=== PATIENT | female | born 1985 | race Caucasian/White ===

== ENCOUNTER 2017-03-06 14:10 | Inpatient (IN) | payer OTHER ==
[2017-03-06] MEDS ORDERED: BUTORPHANOL TARTRATE 1 MG/ML VIAL IVPB ONE (15:11)
[2017-03-06] MEDS ORDERED: PROMETHAZINE HCL 25 MG/1 ML VIAL IVPUSH ONE (15:11)
[2017-03-06] MEDS ORDERED: DINOPROSTONE 10 MG VAGINAL SUPPOSITORY VG ONE (15:20)
--- NOTE | 2017-03-06 15:39 | HP ---
Past Medical History - Primary Care Physician PCP:: Gretel Gonzales - Admission Chief Complaint: 32 yrs , 40.5 weeks by sono , 42 weeks by dates sent from the [facility] dept for Oligo , TOMMY 6.2 cm . hence pt is admitted for induction of labor History of Present Illness: PNC at [address] [place] [address] . Wt gain 32 lbs work UP : O pos, Rpr nr, Hiv neg, Hbsag neg, Rubella immune , Sickle neg, Gbs neg, Sickle neg, Quantiferon neg, 1 Hr Gtt 106, gc/ct neg Nt Screen not done, Modified Sequential neg. Grwoth sono reviewed. History Source: Patient, Medical Record Limitations to Obtaining History: No Limitations - Past Medical History BALER: No: Migraine, Seizure Cardiovascular: No: HTN Pulmonary: No: Asthma, COPD Gastrointestinal: No: Gastritis, GERD Hepatobiliary: No: Hepatitis B Renal/: No: UTI ...: 3 ...Para: 2 (2 03/22/2006--7'2", 06/13/2007 7'6" ) ...LMP: 05/16/16 ... Weeks Gestation by Dates: 42 ...EDC by Dates: 02/20/17 ...EDC by Sono: 03/01/17 (40.5) Heme/Onc: Yes: Anemia Infectious Disease: No: HIV, STD's Psych: No: Addictions, Anxiety, Bipolar, Panic Endocrine: No: Diabetes Mellitus, Hyperparathyroidism, Hyperthyroidism, Hypothyroidism - Past Surgical History Past Surgical History: Yes: None Hx Myomectomy: No Hx Transabdominal Cerclage: No - Smoking History Have you smoked in the past 12 months: No - Alcohol/Substance Use Hx Alcohol Use: No History of Substance Use: reports: None Home Medications - Allergies Allergies/Adverse Reactions: Allergies Allergy/AdvReac Type Severity Reaction Status Date / Time No Known Allergies Allergy Verified 03/06/17 16:16 - Home Medications Home Medications: Ambulatory Orders Ferrous Sulfate 325 mg PO DAILY 03/06/17 Pnv95/Ferrous Fumarate/FA [ Vitamin Tablet] 1 each PO DAILY 03/06/17 Physical Exam - Maternity Vital Signs: Selected Entries 03/06/17 14:10 Temperature 98.0 F Pulse Rate 76 Blood Pressure 122/77 Weight 126 lb Constitutional: Yes: Well Nourished Eyes: Yes: WNL, PERRL HENT: Yes: WNL, Normocephalic Neck: Yes: WNL Cardiovascular: Yes: WNL, Regular Rate and Rhythm Lungs: Clear to auscultation Breast(s): Yes: WNL - Abdominal Exam/OB Fundal Height: 36 Number of Fetuses: Single Presentation: Vertex Contractions: No Monitor Mode: External Heart Rate (range): 130-140 Heart Rate Location: [facility] Category: I Accelerations: Uniform Decelerations: None - Vaginal Exam/OB Vaginal Bleediing: No Dilatation (cm): fT Effacement (%): 50 Amniotic Membrane Status: Intact Presentation: Vertex/Position (EXAM AT 3.20 pm) Station: -3 - Physical Exam Musculoskeletal: Yes: WNL Extremities: Yes: WNL. No: Calf Tenderness Edema: Yes Edema: LLE: 1+, RLE: 1+ Integumentary: Yes: WNL Deep Tendon Reflex Grade: Normal +2 ...Motor Strength: WNL Psychiatric: Yes: WNL, Alert, Oriented - Labs Lab Results: Laboratory Tests 03/06/17 03/06/17 03/06/17 16:00 16:00 16:00 WBC 5.3 Hgb 12.1 Hct 36.1 Plt Count 209 Neutrophils % 64.5 Lymphocytes % 26.4 Monocytes % 7.8 Eosinophils % 1.1 Basophils % 0.2 INR 0.88 PTT (Actin FS) 31.5 Sodium 138 Potassium 4.1 Chloride 105 Carbon Dioxide 22 BUN 9 Creatinine 0.4 L Random Glucose 98 Problem List - Problems (1) Post term , 41 weeks Code(s): O48.0 - POST-TERM Z3A.41 - 41 WEEKS GESTATION OF (2) Oligohydramnios Code(s): O41.00X0 - OLIGOHYDRAMNIOS, UNSP TRIMESTER, NOT APPLICABLE OR UNSP Qualifiers: Trimester: third trimester (3) Elective induction of labor planned Code(s): [id number] - Assessment/Plan 32 yrs , 40 .5 weeks by sono & 42 weeks by dates , noted to have oligohydramnios on BPP( TOMMY -.6.2 cm ), GBS neg Plan cervidil inductio Trial of labor for vag delivery
[2017-03-06 15:59] VITALS: BMI 24.6
[2017-03-06] MEDS ORDERED: SODIUM PHOSPHATE/NA BIPHOS 133 ML ENEMA PR ONE (16:42)
[2017-03-06 16:49] LABS: BASOPHIL 0.2 % (0-2.0); EOSINOPHIL 1.1 % (0-4.5); MCH 26.7 pg (25.7-33.7); MCHC 33.5 g/dl (32.0-36.0); MEAN CELL VOLUME 79.7 fl (80-96); MEAN PLT VOLUME 8.9 fl (7.5-11.1); NEUTROPHILS 64.5 % (42.8-82.8); PLATELET COUNT 209 K/MM3 (134-434); RDW 19.6 % (11.6-15.6); WHITE BLOOD COUNT 5.3 K/mm3 (4.0-10.0)
[2017-03-06 16:59] LABS: INR 0.88 (0.82-1.09); PROTHROMBIN TIME (PATIENT) 9.7 SEC (9.98-11.88)
[2017-03-06] MEDS: DEXTROSE 5%-LACTATED RINGERS 1,000 ML IV SCH (17:00)
[2017-03-06 17:02] LABS: ACTIVATED PTT 31.5 SECONDS (26.9-34.4)
[2017-03-06 17:19] LABS: ANION GAP 11 (8-16); CALCIUM 8.6 mg/dL (8.5-10.1); CO2 22 mmol/L (21-32); CREATININE 0.4 mg/dL (0.55-1.02); GLUCOSE,RANDOM 98 mg/dL (74-106)
--- NOTE | 2017-03-06 18:48 | PN ---
Progress Note, Labor Vaginal Exam #1 Labor Exam Date: 03/06/17 Labor Exam Time: 18:35 Heart Rate (range): 110-120 Dilatation: 1cm Effacement (%): 60 Amniotic Membrane Status: Intact Presentation: Vertex/Position Station: -3 Remarks: fhr ca1 UC q1 -min pt c/o pain IV hydration was given rx Iv stadol 2 mg + phenergan 25 mg iv stat Vaginal Exam #2 Labor Exam Date: 03/07/17 Labor Exam Time: 01:55 Heart Rate (range): 120-130 Dilatation: 2 Effacement (%): 60 Amniotic Membrane Status: Ruptured Presentation: Vertex/Position Station: -3 Remarks: uc 1-2 min FHR cat-1 BP131/80, T982 Pulse 71 Vaginal Exam #3 Labor Exam Date: 03/07/17 Labor Exam Time: 08:00 Heart Rate (range): 135 Dilatation: 3 Effacement (%): 60 Amniotic Membrane Status: Intact Presentation: Vertex/Position Station: -3 Remarks: UC q1-2 min FHR cat-1 Plan pt may ambulate & shower Selected Entries 03/07/17 06:00 Temperature 97.6 F Pulse Rate 89 Blood Pressure 129/86 03/07/17 12.15 Pm no change in cervix dilatation ,post, thick 2-3 cm FHR cat-1 uc dysfunctional 2-4 min . Pitocin augmentation start with 0.5 ml/hr . 03/07/17 17.45 FHR 135 , cat-1 UC q2-4 min cx , no change , post, thick 2-3 cm , vx -[address] trial of labor may do fractional induction Selected Entries 03/07/17 03/07/17 16:00 17:00 Temperature 98.1 F Pulse Rate 64 70 Blood Pressure 129/78 127/79 03/07/17 23.45 FHR 130 cat-1 UC q3 -4 min cx 3 cm.thick, 60%/mI vx -3 , post os . pt disheartened & anxious & crying BP sometimes is elevated 150/88 bilateral edema of feet upto midcalf is noted Plan stop pitocin rest until 5.00AM restart pitocin at 6.00AM after enema & shower UA HELLP, repeat cbc Laboratory Tests 03/08/17 03/08/17 03/08/17 00:10 00:10 00:10 Retic Count 1.99 H GGT 33 AST 30 ALT 21 Urine Protein 1+ H
[2017-03-06] MEDS ORDERED: DEXTROSE 5%-LACTATED RINGERS 1,000 ML IV ONE (23:00)
[2017-03-07] MEDS ORDERED: BUTORPHANOL TARTRATE 1 MG/ML VIAL IVPUSH ONE (02:11)
[2017-03-07] MEDS ORDERED: PROMETHAZINE HCL 25 MG/1 ML VIAL IVPUSH ONE (02:11)
[2017-03-07] MEDS: DEXTROSE 5%-LACTATED RINGERS 1,000 ML IV SCH ×3 (04:23→23:30)
[2017-03-07] MEDS: OXYTOCIN 15 UNITS/ LR 250 ML 250 ML IVPB SCH (12:15)
[2017-03-08 00:34] LABS: BASOPHIL 0.6 % (0-2.0); EOSINOPHIL 0.9 % (0-4.5); MCH 25.8 pg (25.7-33.7); MCHC 32.4 g/dl (32.0-36.0); MEAN CELL VOLUME 79.6 fl (80-96); MEAN PLT VOLUME 9.1 fl (7.5-11.1); NEUTROPHILS 65.8 % (42.8-82.8); PLATELET COUNT 208 K/MM3 (134-434); WHITE BLOOD COUNT 6.3 K/mm3 (4.0-10.0)
[2017-03-08 00:54] LABS: URIC ACID 4.4 mg/dL (2.6-7.2)
[2017-03-08 02:39] LABS: URINE APPEARANCE CLEAR; URINE BILIRUBIN NEGATIVE (NEGATIVE); URINE BLOOD NEGATIVE (NEGATIVE); URINE COLOR LTYELLOW; URINE GLUCOSE (UA) NEGATIVE (NEGATIVE); URINE KETONE NEGATIVE (NEGATIVE); URINE LEUK ESTERASE NEGATIVE (NEGATIVE); URINE NITRITE NEGATIVE (NEGATIVE); URINE UROBILINOGEN 2.0 E.U/dl E.U./dl (0.2-1.0)
[2017-03-08 02:40] LABS: URINE PROTEIN 1+ (NEGATIVE)
[2017-03-08 02:44] LABS: URINE MUCUS RARE; URINE WBC 1 /hpf (3-5)
[2017-03-08] MEDS: DEXTROSE 5%-LACTATED RINGERS 1,000 ML IV SCH ×2 (09:02→15:26)
--- NOTE | 2017-03-08 09:48 | PN ---
Progress Note, Labor Vaginal Exam #1 Labor Exam Date: 03/08/17 Labor Exam Time: 09:25 Heart Rate (range): 120-130 Dilatation: 3 Effacement (%): thick/60 Amniotic Membrane Status: Ruptured (AROM clear blood stained fluid scanty) Presentation: Vertex/Position Station: -3 Remarks: uc irregular 2-5 min fhr cat-1 pt was permitted rest last night In AM today she was given fleets enema , shower 8.30 Am pitocin induction started Selected Entries 03/08/17 03/08/17 03/08/17 04:00 08:00 09:00 Temperature 98.3 F Pulse Rate 62 62 Blood Pressure 131/80 146/87 146/80 Vaginal Exam #2 Labor Exam Date: 03/08/17 Labor Exam Time: 13:45 Heart Rate (range): 135 Dilatation: 5 Effacement (%): 65 Amniotic Membrane Status: Ruptured Presentation: Vertex/Position Station: -2 (-3/-2) Remarks: FHR cat-1 UC q 2-3 min . 12.30pm iv stadol 1 mg + phenrgan 25 mg given 2..15pm epidural requested . 2.50pm epidural given Selected Entries 03/08/17 03/08/17 03/08/17 12:00 13:00 14:00 Temperature 98.6 F 98.2 F Pulse Rate 62 104 H 94 H Blood Pressure 146/76 154/88 144/92 Vaginal Exam #3 Labor Exam Date: 03/08/17 Labor Exam Time: 16:10 Heart Rate (range): 120-130 Dilatation: 8 Effacement (%): 90 Amniotic Membrane Status: Ruptured Presentation: Vertex/Position Station: 0 Remarks: fhr cat-2 uc 2-3 min Selected Entries 03/08/17 15:35 Pulse Rate 73 Blood Pressure 148/85 Vaginal Exam #4 Labor Exam Date: 03/08/17 Labor Exam Time: 18:00 Heart Rate (range): 125 Dilatation: 10 Effacement (%): 100 Amniotic Membrane Status: Ruptured Presentation: Vertex/Position Station: +2 Remarks: fhr cat-1 UC q 2min pt encouraged to push Selected Entries 03/08/17 03/08/17 03/08/17 17:50 18:00 18:05 Temperature 99.0 F Pulse Rate 85 92 H Blood Pressure 151/87 146/81
[2017-03-08] MEDS: OXYTOCIN 15 UNITS/ LR 250 ML 250 ML IVPB SCH (13:20)
[2017-03-08] MEDS ORDERED: ELECTROLYTE-148 SOLN 1,000 ML IV SCH (14:15)
[2017-03-08] MEDS ORDERED: FENTANYL/BUPIVACAINE/NS/PF - PCEA - 50 ML DISP.SYRIN EP SCH (15:00)
[2017-03-08] MEDS: ACETAMINOPHEN 325 MG TABLET (FP) PO PRN (19:20)
--- NOTE | 2017-03-08 19:24 | PN ---
Delivery - Delivery Vaginal Delivery: No Problems, Spontaneous Type of Anesthesia: Local, Epidural Episiotomy/Laceration: Midline (episiotomy sutured in layers with chr catgut #2/ 0 pr exam mucosa & sphincter intact) EBL (cc): 300 Delivery, Single - Stages of Labor Date 1st Stage Initiatied: 03/08/17 Time 1st Stage Initiated: 12:00 Date 2nd Stage Initiated: 03/08/17 Time 2nd Stage Initiated: 18:00 Date of Delivery: 03/08/17 Time of Delivery: 18:25 Time Placenta Delivered: 18:30 Placenta: Yes: Spontaneous, Uterine Exploration - Condition of Infant Outpatient Physical Therapist Assistant/Precision Devices Inspector/Tester Present: No Infant Gender: Male Position: Left, OA Total Hours ROM (Hrs/Mins): 9 hours 5 minutes - 1 Minute Total Score: 9 5 Minutes Total Score: 9 - Feeding Plan Initial Plan: Elected not to breastfeed exclusively throughout hospitalization Remarks - Remarks Remarks: 32 yrs , admitted on 03/06/17 for induction of labor due to 40 .5 weeks Oligohydramnios . [facility] 03[facility]17 cervidil insertion , d/vinod in 6 hrs due to tachysystole . rx stadol + phenrgan for analgesia was given 03/06/17 Pitocin Induction started for 12 hrs , no change in cx , d/vinod 03/07/17 Pitocin Induction restarted stadol + phenrgan followed by epidural labor analgesia was given . Prolonged latent phase of labor . Intrapartum course uneventful
[2017-03-08] MEDS ORDERED: oxyCODONE HCL 5 MG TABLET PO PRN (19:30)
[2017-03-08] MEDS ORDERED: METHYLERGONOVINE MALEATE 0.2 MG/1 ML AMP IM PRN (19:30)
[2017-03-08] MEDS ORDERED: D5W-LR W/ 20 UNITS OXYTOCIN 1,000 ML IV SCH (19:30)
[2017-03-08] MEDS ORDERED: BENZOCAINE 20% 57 GM BOTTLE TP PRN (19:30)
[2017-03-08] MEDS ORDERED: WITCH HAZEL 50% (TUCKS) 40 PAD/JAR PAD TP PRN (19:30)
[2017-03-08] MEDS ORDERED: BENZOCAINE 28 GM HEMORRHOIDAL OINTMENT TP PRN (19:30)
[2017-03-08] MEDS ORDERED: BISACODYL 10 MG SUPP.RECT RC PRN (19:30)
[2017-03-09] MEDS: ACETAMINOPHEN 325 MG TABLET (FP) PO PRN ×3 (06:30→23:37)
[2017-03-09] MEDS: FERROUS SO4 325 MG TABLET (FP) PO SCH ×2 (08:33→17:05)
--- NOTE | 2017-03-09 09:23 | PN ---
Post Progress Note - Subjective Subjective: c/o exhastion Post Day: 1 Type of Delivery: Vital Signs: Vital Signs Temperature 97.8 F 03/09/17 06:31 Pulse Rate 64 03/09/17 06:31 Respiratory Rate 20 03/09/17 06:31 Blood Pressure 127/77 03/09/17 06:31 O2 Sat by Pulse Oximetry (%) 100 03/08/17 20:00 Breast Exam: Yes: Soft, Other (BF ). No: Engorged Uterus: Yes: Fundus Firm, Fundus below umbilicus, Non-tender Lochia: Yes: Rubra Lochia, amount: Moderate Extremities: Yes: Calves non-tender Perineum: Yes: Intact Activity: Ambulating - Labs Labs: CBC WBC 6.3 K/mm3 (4.0-10.0) 03/08/17 00:10 RBC 4.51 M/mm3 (3.60-5.2) 03/08/17 00:10 Hgb 11.6 GM/dL (10.7-15.3) 03/08/17 00:10 Hct 35.9 % (32.4-45.2) 03/08/17 00:10 MCV 79.6 fl (80-96) L 03/08/17 00:10 MCH 25.8 pg (25.7-33.7) 03/08/17 00:10 MCHC 32.4 g/dl (32.0-36.0) 03/08/17 00:10 RDW 20.0 % (11.6-15.6) H 03/08/17 00:10 Plt Count 208 K/MM3 (134-434) 03/08/17 00:10 MPV 9.1 fl (7.5-11.1) 03/08/17 00:10 Neutrophils % 65.8 % (42.8-82.8) 03/08/17 00:10 Lymphocytes % 25.4 % (8-40) 03/08/17 00:10 Monocytes % 7.3 % (3.8-10.2) 03/08/17 00:10 Eosinophils % 0.9 % (0-4.5) 03/08/17 00:10 Basophils % 0.6 % (0-2.0) 03/08/17 00:10 Retic Count 1.99 % (0.5-1.5) H 03/08/17 00:10 Haptoglobin 115 mg/dL (34-200) 03/08/17 00:10 Problem List - Problems (1) Post term , 41 weeks Code(s): O48.0 - POST-TERM Z3A.41 - 41 WEEKS GESTATION OF (2) Oligohydramnios Code(s): O41.00X0 - OLIGOHYDRAMNIOS, UNSP TRIMESTER, NOT APPLICABLE OR UNSP Qualifiers: Trimester: third trimester (3) Elective induction of labor planned Code(s): [id number] - Assessment/Plan stable pp cbc pending
[2017-03-09] MEDS: PRENATAL VITAMINS W/ FOLIC ACID TABLET (FP) PO SCH (09:47)
[2017-03-09 09:48] LABS: BASOPHIL 0.2 % (0-2.0); EOSINOPHIL 0.2 % (0-4.5); MCH 26.6 pg (25.7-33.7); MCHC 33.1 g/dl (32.0-36.0); MEAN CELL VOLUME 80.3 fl (80-96); MEAN PLT VOLUME 9.4 fl (7.5-11.1); NEUTROPHILS 73.8 % (42.8-82.8); PLATELET COUNT 163 K/MM3 (134-434); RDW 19.8 % (11.6-15.6); WHITE BLOOD COUNT 13.3 K/mm3 (4.0-10.0)
[2017-03-09] MEDS ORDERED: SENNOSIDES/DOCUSATE COMBO (SENNA PLUS) TABLET (UD) PO PRN (22:00)
[2017-03-10] MEDS: FERROUS SO4 325 MG TABLET (FP) PO SCH (08:40)
--- NOTE | 2017-03-10 09:05 | PN ---
Post Progress Note - Subjective Subjective: nocomplains of headache Post Day: 2 Type of Delivery: Vital Signs: Vital Signs Temperature 98.0 F 03/09/17 23:34 Pulse Rate 62 03/10/17 05:39 Respiratory Rate 20 03/10/17 05:39 Blood Pressure 140/96 03/10/17 05:39 O2 Sat by Pulse Oximetry (%) 100 03/08/17 20:00 Breast Exam: Yes: Soft, Other. No: Engorged Uterus: Yes: Fundus Firm, Fundus below umbilicus, Non-tender Lochia: Yes: Rubra Lochia, amount: Moderate Extremities: Yes: Calves non-tender Perineum: Yes: Intact Activity: Ambulating - Labs Labs: CBC WBC 13.3 K/mm3 (4.0-10.0) H D 03/09/17 06:15 RBC 4.15 M/mm3 (3.60-5.2) 03/09/17 06:15 Hgb 11.0 GM/dL (10.7-15.3) 03/09/17 06:15 Hct 33.3 % (32.4-45.2) 03/09/17 06:15 MCV 80.3 fl (80-96) 03/09/17 06:15 MCH 26.6 pg (25.7-33.7) 03/09/17 06:15 MCHC 33.1 g/dl (32.0-36.0) 03/09/17 06:15 RDW 19.8 % (11.6-15.6) H 03/09/17 06:15 Plt Count 163 K/MM3 (134-434) D 03/09/17 06:15 MPV 9.4 fl (7.5-11.1) 03/09/17 06:15 Neutrophils % 73.8 % (42.8-82.8) 03/09/17 06:15 Lymphocytes % 18.3 % (8-40) D 03/09/17 06:15 Monocytes % 7.5 % (3.8-10.2) 03/09/17 06:15 Eosinophils % 0.2 % (0-4.5) 03/09/17 06:15 Basophils % 0.2 % (0-2.0) 03/09/17 06:15 Retic Count 1.99 % (0.5-1.5) H 03/08/17 00:10 Haptoglobin 115 mg/dL (34-200) 03/08/17 00:10 Problem List - Problems (1) Post term , 41 weeks Code(s): O48.0 - POST-TERM Z3A.41 - 41 WEEKS GESTATION OF (2) Oligohydramnios Code(s): O41.00X0 - OLIGOHYDRAMNIOS, UNSP TRIMESTER, NOT APPLICABLE OR UNSP Qualifiers: Trimester: third trimester (3) Elective induction of labor planned Code(s): [id number] - Assessment/Plan stable plan ct ppcare discharge today
[2017-03-10 09:06] VITALS: BP 123/80; PULSE 67; TEMP 98.3
--- NOTE | 2017-03-10 09:08 | DS ---
Physical Exam-ADMINISTRATIVE OFFICE ASSISTANT Vital Signs: Vital Signs Temperature 98.0 F 03/09/17 23:34 Pulse Rate 62 03/10/17 05:39 Respiratory Rate 20 03/10/17 05:39 Blood Pressure 140/96 03/10/17 05:39 O2 Sat by Pulse Oximetry (%) 100 03/08/17 20:00 Constitutional: Yes: Well Nourished Eyes: Yes: WNL HENT: Yes: WNL Neck: Yes: WNL Cardiovascular: Yes: WNL Respiratory: Yes: WNL Gastrointestinal: Yes: WNL ....Post : Yes: Uterus firm, Uterus non-tender, Moderate lochia rubra ( perineum intact , epi wound healing) Breast(s): Yes: WNL (bf, not engorged) Integumentary: Yes: WNL Neurological: Yes: WNL ...Motor Strength: WNL Psychiatric: Yes: WNL Labs: CBC, BMP 03/09/17 06:15 03/06/17 16:00 Delivery - Delivery Vaginal Delivery: No Problems, Spontaneous Type of Anesthesia: Epidural Episiotomy/Laceration: Midline (episiotomy sutured in layers with chr catgut #2/ 0 pr exam mucosa & sphincter intact) EBL (cc): 300 Delivery, Single - Stages of Labor Date 1st Stage Initiatied: 03/08/17 Time 1st Stage Initiated: 12:00 Date 2nd Stage Initiated: 03/08/17 Time 2nd Stage Initiated: 18:00 Date of Delivery: 03/08/17 Time of Delivery: 18:25 Time Placenta Delivered: 18:30 Placenta: Yes: Spontaneous, Uterine Exploration - Condition of Dashboard Developer/Shooter Helper Present: No Gender: Male Weight: 7 lb 11 oz Position: Left, OA Total Hours ROM (Hrs/Mins): 9 hours 5 minutes - 1 Minute Total Score: 9 5 Minutes Total Score: 9 - [place] Feeding Plan Initial Plan: Elected not to breastfeed exclusively throughout hospitalization Remarks - Remarks Remarks: 32 yrs , admitted on 03/06/17 for induction of labor due to 40 .5 weeks Oligohydramnios . GBS neg PNC at , [facility] 03/06/17 cervidil insertion , d/vinod in 6 hrs due to tachysystole . rx stadol + phenrgan for analgesia was given 03/06/17 Pitocin Induction started for 12 hrs , no change in cx , d/vinod 03/07/17 Pitocin Induction restarted stadol + phenrgan followed by epidural labor analgesia was given . Prolonged latent phase of labor . Intrapartum course uneventful pp course unevntful discharge today. Discharge Summary Reason For Visit: INDUCTION OF LABOR Current Active Problems Elective induction of labor planned (Acute) Normal spontaneous vaginal delivery (Acute) Oligohydramnios (Acute) Post term , 41 weeks (Acute) Prolonged latent phase of labor (Acute) Condition: Stable - Instructions Diet, Activity, Other Instructions: Post Instructions DIET: Continue good diet high in protein, calcium, and iron rich foods. Drink at least eight (8) glasses of water daily in addition to other fluids. ct Regular diet MEDICATIONS: Continue vitamins and iron as previously directed. Motrin and Tylenol may be taken for minor discomfort. ACTIVITY: Mild to moderate exercise may be started in two (2) weeks. Take frequent rest periods. Resume normal activity after six (6) week check up. WOUND CARE OF OPERATIVE SITE: Continue use of perineal bottle until vaginal discharge stops. Keep area clean. Shower daily. Keep abdominal wound dry. Report any drainage or redness to physician. Tub baths, tampons and douches are not permitted for [address] Breast feeding & or Bottle feeding BREAST CARE: (For those that are not breast feeding): If engorgement occurs: Wear tight fitting bra. Take Tylenol or Motrin for pain. Apply cold packs (ice in bags to each breast ) FAMILY PLANNING: There are many control alternatives to pursue and they should be discussed at your first office visit. You may resume sexual activity after your six (6) week check up. (Remember, breast feeding is not a contraceptive) NEXT PHYSICIAN APPOINTMENT: Be certain to call for a six (6) week appointment, unless otherwise directed. Call Clinic or got to Emergency Dept if you have any of the following: Heavy vaginal bleeding Painful urination Leg pain Unusual odor noted to vaginal bleeding High fever Red streaking noted on breast Referrals: Gretel Gonzales MD [Staff Physician] - Disposition: HOME - Home Medications Comprehensive Discharge Medication List: Ambulatory Orders Ferrous Sulfate 325 mg PO DAILY 03/06/17 Pnv95/Ferrous Fumarate/FA [ Vitamin Tablet] 1 each PO DAILY 03/06/17 Benzocaine [Americaine 20% [place] -] 1 spray TP PRN PRN #0 bottle 03/09/17 Ferrous Sulfate [Feosol] 325 mg PO BIDWM tab 03/09/17 Vitamins (Sjr) - 1 tab PO DAILY tablet 03/09/17 Witch Nancy 50% (Tucks) [Tucks Pads -] 1 pad TP PRN PRN #0 pad 03/09/17
[2017-03-10] MEDS: PRENATAL VITAMINS W/ FOLIC ACID TABLET (FP) PO SCH (10:23)
[2017-03-10] MEDS ORDERED: DIPHTH,PERTUSS(ACELL),TET 0.5 ML DISP.SYRIN IM ONE (11:00)
== END 2017-03-10 12:50 | disposition home or self-care (01) | DRG 560 ==
LOC: JLDR 14:10 → J3W 03-07 08:51 → JLDR 03-07 12:06 → J3W 03-08 21:09
PROVIDERS: ADMIT Obstetrics & Gynecology; ATTEND Obstetrics & Gynecology
PROC: 3E0P7GC Introduction of Other Therapeutic Substance into Female Reproductive, Via Natural or Artificial Opening (ICD-10-PCS; 2017-03-06)
PROC: 10E0XZZ Delivery of Products of Conception, External Approach (ICD-10-PCS; principal; 2017-03-08)
PROC: 0W8NXZZ Division of Female Perineum, External Approach (ICD-10-PCS; 2017-03-08)
DX: O41.03X0 Oligohydramnios, third trimester, not applicable or unspecified (principal); O48.0 Post-term pregnancy; O63.9 Long labor, unspecified; Z3A.41 41 weeks gestation of pregnancy; Z37.0 Single live birth
CPT/HCPCS: 36415; 59409; 80048; 81003; 81015; 82977; 83010; 84450; 84460; 84550; 85025; 85044; 85610; 85730; 86593; 86850; 86900; 86901; 90715

== ENCOUNTER 2022-06-14 04:22 | Day surgery (SDC) | payer OTHER ==
[2022-06-12 11:45] VITALS: BMI 19.5
[2022-06-14] MEDS ORDERED: BUPIVACAINE HCL/PF 0.25% (2.5MG/ML) 10 ML VIAL ONE (07:30)
[2022-06-14] MEDS ORDERED: SUCCINYLCHOLINE CHLORIDE 200 MG/10 ML SYRINGE ONE (07:44)
[2022-06-14] MEDS ORDERED: MIDAZOLAM HCL 2 MG/2 ML SINGLE DOSE VIAL ONE (07:44)
[2022-06-14] MEDS ORDERED: ROCURONIUM BROMIDE 50 MG/5 ML SYRINGE ONE (07:44)
[2022-06-14] MEDS ORDERED: ONDANSETRON 4 MG/2 ML VIAL ONE (07:48)
[2022-06-14] MEDS ORDERED: BUPIVACAINE HCL/PF 0.25% (2.5MG/ML) 10 ML VIAL IJ ONE (08:46)
[2022-06-14] MEDS ORDERED: NEOSTIGMINE METHYLSULFATE 0.5 MG/1 ML - 10 ML MDV ONE (09:28)
[2022-06-14] MEDS ORDERED: ONDANSETRON 4 MG/2 ML VIAL IVPUSH PRN (09:57)
[2022-06-14] MEDS ORDERED: oxyCODONE HCL 5 MG TABLET PO PRN ×2 (09:57)
[2022-06-14] MEDS ORDERED: LACTATED RINGERS SOLUTION 1,000 ML IV SCH (10:00)
[2022-06-14 11:16] VITALS: RESP 16
[2022-06-14] MEDS ORDERED: oxyCODONE HCL 5 MG TABLET ONE (13:26)
[2022-06-14 14:44] VITALS: BP 120/70; PULSE 80; TEMP 98.1
== END 2022-06-14 14:10 | disposition home or self-care (01) ==
LOC: JASU-SURG 04:22
PROVIDERS: ATTEND Obstetrics & Gynecology
PROC: 0UPD4HZ Removal of Contraceptive Device from Uterus and Cervix, Percutaneous Endoscopic Approach (ICD-10-PCS; principal; 2022-06-14 08:00)
PROC: 0UT74ZZ Resection of Bilateral Fallopian Tubes, Percutaneous Endoscopic Approach (ICD-10-PCS; 2022-06-14 08:00)
DX: Z30.2 Encounter for sterilization (principal)
CPT/HCPCS: 81025; 88300-TC; 88305-TC; 94760

== ENCOUNTER 2024-08-30 10:27 | Emergency (ER) | payer OTHER ==
[2024-08-30 10:34] VITALS: BP 94/64; PULSE 100; RESP 18; TEMP 98.8; BMI 20.2
[2024-08-30] MEDS ORDERED: guaiFENesin/D-METHORPHAN HB 10 ML UNIT-DOSE CUPS ONE (11:39)
[2024-08-30] MEDS ORDERED: IBUPROFEN 600 MG TABLET (FP) PO ONE (11:39)
[2024-08-30] MEDS: IBUPROFEN 600 MG TABLET (FP) PO ONE (11:40)
[2024-08-30] MEDS: guaiFENesin/D-METHORPHAN HB 10 ML UNIT-DOSE CUPS PO ONE (11:41)
== END 2024-08-30 13:00 | disposition home or self-care (01) ==
LOC: JERFT 10:27
DX: R05.9 Cough, unspecified (principal); R09.81 Nasal congestion; M79.10 Myalgia, unspecified site; J98.8 Other specified respiratory disorders; B97.89 Other viral agents as the cause of diseases classified elsewhere
CPT/HCPCS: 71046-TC-FY; 87651; 99284-25